=== PATIENT | male | born 2000 | race Caucasian/White ===

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

== ENCOUNTER → 2018-03-16 | Day surgery (SDC) | payer OTHER ==
[~2018-03-16] MED LIST: BACITRACIN IM FOR SOLN 50,000 UNIT VIAL ONE; BUPIVACAINE HCL PF 0.75% 30 ML VIAL ONE; IBUP1TAB7 PO; KETOROLAC TROMETHAMINE 30 MG/ML (IVP) VIAL IV PUSH ONE; LACTATED RINGER'S 1000 ML INJ 1,000 ML ONE; MIDAZOLAM HCL 5 MG/ML VIAL (1 ML) ONE; ONDANSETRON HCL 4 MG/2 ML VIAL IV PUSH ONE; PROPOFOL 500 MG/50 ML BTL IV ONE; SODIUM CHLORIDE 0.9% INJ 20 ML ONE; ceFAZolin 2 GM PREMIX 50 ML ONE; ceFAZolin INJ 1,000 MG VIAL ONE
--- NOTE | 2018-03-16 18:46 | MP ---
cc: Lauro Valerio MD, Jeffrey W MD DATE OF OPERATION: 03/16/2018 PREOPERATIVE DIAGNOSIS: Right knee anterior cruciate ligament tear. POSTOPERATIVE DIAGNOSIS: Right knee anterior cruciate ligament tear. PROCEDURE PERFORMED: Right knee anterior cruciate ligament patellar tendon bone autograft arthroscopic assisted reconstruction. SURGEON: Lauro Valerio MD PHARMACY TECHNICIAN INSTRUCTOR: LINDA Gray. ANESTHESIA: General with femoral nerve block. ESTIMATED BLOOD LOSS: 100 mL TOURNIQUET TIME: Zero minutes. COMPLICATIONS: None. IMPLANTS USED: Arthrex. JUSTIFICATION: The patient is a 17-year-old male who sustained traumatic injury to right knee with complete disruption of the anterior cruciate ligament. He has complaints of pain, swelling and instability of his knee. Clinical exam as well as MRI confirmed the above named findings. The patient was counseled as to risks, benefits, alternatives of the above-named proposed surgical procedure. He did wish to proceed with surgery. PROCEDURE IN DETAIL: Written consent was obtained. The patient was identified by name, taken to the operating room and placed supine on the operating table. General anesthesia was administered, as well as 2 grams of IV Ancef. Right thigh was carefully placed in a well-padded leg choudhury. The right lower extremity was prepped and draped using alcohol, Hibiclens solution and Dura Prep solution. After a timeout was performed, a longitudinal incision was made over the anterior aspect of the right knee. The paratenon was incised and a 10 mm patellar tendon bone autograft was harvested. On the back table, #2 fiber wire was placed within the proximal and distal bone plug portions of the graft. A #2 Fiber Wire was placed and the graft was pretensioned. This was placed in a sterile saline gauze. Attention was turned back to the knee where the patella tendon harvest site was closed primarily with 0 running Vicryl suture. Attention was turned to the knee joint, where medial and lateral parapatellar arthroscopic portals were established. The patellofemoral joint revealed no significant chondromalacia. The medial compartment revealed no significant meniscal pathology or chondromalacia. The intercondylar notch revealed a complete rupture of the anterior cruciate ligament. The lateral compartment was free of meniscal pathology and chondromalacia. The shaver was used perform a debridement of the torn anterior cruciate ligament stump. An arthroscopic bur was used to perform a notchplasty. The posterior wall was well visualized. A retro cutting Arthrex 10 mm reamer was then placed within the wrangell footprint of the anterior cruciate ligament insertion. A guide pin was then drilled. Subsequently, the outside cortex of the tibia was drilled with a 10 mm acorn reamer. The guide pin was then switched for a coring reamer guide pin and then a coring reamer was then used to drill the tibial tunnel 10 mm in diameter. The bone from the coring reamer was then saved on the back table for later bone grafting. A medial portal over the top femoral 7 mm guide was then placed from the medial portal onto the lateral femoral condyle. The knee was hyperflexed and a guide pin was drilled extending superior lateral aspect of the knee. A low profile cannulated 10 mm acorn reamer was then drilled to a depth of 25 mm using a soft tissue and bone debris from within the joint after the femoral tunnel drilling. At this point, a Fiber link suture was then shuttled from the tibia patella exiting the femoral tunnel. Once prepared, the sutures from the graft were placed through the fiber link suture and then shuttled from the tibial tunnel exiting the femoral tunnel. The bone flap portion was then pulled from the tibial tunnel and then well seated. It was in the femoral tunnel. A notch was used to notch the anterior cortex of the femoral tunnel and a guide wire was placed. An Arthrex 7 x 23 mm bioabsorbable interference screw was placed from the medial portal and excellent purchase and fixation was achieved after insertion of the interference screw fixation along the femoral side. The guide wire was removed. The leg was taken through a full range of motion with no evidence of pistoning or tension of the graft. With the leg held near full extension, the guide wire was placed along the anterior border of the graft and the Arthrex 8 x 28 mm bioabsorbable interference screw was used for fixation of the tibial side. An intraoperative Jim examination was performed after insertion of the tibial screw which was negative. The guidewire was removed. The bone harvesting sites were then filled with bone graft from the tibial tunnel coring reamer. #1 Vicryl suture was used for repair over the paratenon layers of the tibial tubercle and patella. The knee was thoroughly irrigated with sterile saline solution. Subcutaneous layer was closed with 2-0 Vicryl suture, skin was closed with Dermabond. Sterile dressing was applied. The patient tolerated the procedure well with no intraoperative complications noted. Vipin Murphy, physician assistant child care teacher certified, was present during the entire procedure to include patient positioning and the procedure itself. The medical necessity of a physician assistant child care teacher was indicated in this case due to the complexity of the procedure. He assisted with appropriate manipulation of the legs and also assisted with harvesting of the patella tendon bone plug position. He assisted with preparation of the harvested tendon for purpose of reconstruction. He assisted with drilling of bone tunnels, insertion of the graft and insertion of internal fixation for purposes of reconstruction. MD LAURENT Daly/ , 05:10 PM , 06:45 PM
== END | disposition home or self-care (01) ==
LOC: ESDC 13:10
PROVIDERS: ATTEND Orthopaedic Surgery Sports Medicine
DX: S83.511A Sprain of anterior cruciate ligament of right knee, initial encounter (principal)
CPT/HCPCS: 01400; 01991; 29888; 64447; C1713; J0690; J1885; J2250; J2405; J3010; J7120